=== PATIENT | female | born 1995 | race African-American/Black ===

== ENCOUNTER 2016-09-13 23:15 | Emergency (ER) | payer OTHER ==
--- NOTE | ~2016-09-13 | CT4 ---
[facility] A Service of [facility] RADIOLOGY TEXT RESULTS PATIENT: MADI ROMERO LOCATION: [facility] : [birth year] UNIT #: [id number] AGE: [address]: Tania Jones MD SEX: F ORDER DR: [id number] [facility] [address] [place], [place] [address] [id number] E MR#: [id number] #: [id number] NAME: MADI ROMERO : 1995 SEX: F STUDY DATE/TIME: 09/13/2016 22:58 UNIT: [facility] ROOM: STUDY DESCRIPTION: CT Abd and Pelv Wo Cont Attending Physician: Tania Jones M.D. Ordering Physician: Tania Jones M.D. Primary Care Physician: No Primary Care Physician MEDICAL IMAGING REPORT This report is preliminary unless electronic signature is present EXAM CT abdomen and pelvis 09/13/2016 at 23:51. INDICATIONS Nausea for 1 day. Dysuria for 1 month. Upper abdominal pain as well. TECHNIQUE Axial images were obtained through the abdomen and pelvis without contrast. Multiplanar reformats were obtained. This CT exam was performed with one or more of the following radiation dose reduction techniques: automatic exposure control, adjustment of mA and/or kV according to patient size, and iterative reconstruction. COMPARISON Comparison is made with 01/27/2015. FINDINGS Abdomen: Lung bases are clear. The gallbladder is normal. No renal or ureteral stones are seen and there is no hydronephrosis. The unenhanced solid organs are normal. The unopacified GI tract is normal. There is no free fluid. Pelvis: There are no lower ureteral stones. The bladder is normal. The appendix is normal. The remainder of the unopacified GI tract is normal as well. Solid pelvic organs are normal. IMPRESSION 1. Normal noncontrast CT abdomen pelvis. 2. No renal or ureteral stones. No hydronephrosis. 3. Normal unopacified GI tract, including the appendix. Dictated by... [facility] A Service of [facility] RADIOLOGY TEXT RESULTS PATIENT: MADI ROMERO LOCATION: [facility] : [birth year] UNIT #: [id number] AGE: [address]: Tania Jones MD SEX: F ORDER DR: David Arango Jr., M.D. THIS IS AN ELECTRONICALLY VERIFIED REPORT David Arango Jr., M.D. at 09/14/2016 12:38 PM ELVI/kami TD: 09/14/2016 09:27 JOB #: [id number] MEDICAL IMAGING REPORT COPY
[2016-09-13 23:07] LABS: URINE SOURCE CLEAN CATCH
[2016-09-13 23:11] LABS: URINE APPEARANCE CLEAR; URINE BILIRUBIN NEG (NEG); URINE BLOOD NEG (NEG); URINE COLOR YELLOW; URINE GLUCOSE NEG (NEG); URINE KETONE NEG (NEG); URINE LEUKOCYTE ESTERASE NEG (NEG); URINE NITRATE NEG (NEG); URINE PH 7.5 (5-8); URINE PROTEIN NEG (NEG); URINE SPECIFIC GRAVITY 1.021 (1.003-1.035); URINE UROBILINOGEN 0.2 MG/DL (NEG)
[2016-09-13 23:15] LABS: BASOPHIL% 0.3 % (0-2.5); EOSINOPHIL# 0.1 X10e3 (0-0.7); HEMATOCRIT 40.4 % (35.0-45.0); HEMOGLOBIN 13.3 gm/dL (12.0-16.0); LYMPHOCYTE# 2.7 X10e3 (1.0-3.5); LYMPHOCYTE% 45.2 % (17.0-45.0); MEAN CELL VOLUME 90.1 FL (83-96); MEAN CORPUSCULAR HEMOGLOBIN 29.8 PG (28-34); MEAN PLATELET VOLUME 9.2 FL (6.5-11.5); MONOCYTE# 0.7 X10e3 (0-1.0); MONOCYTE% 11.6 % (3.0-12.0); NEUTROPHIL# 2.5 X10e3 (1.5-7.1); NEUTROPHIL% 41.9 % (40-75); PLATELET COUNT 190 X10e3 (140-420); RED BLOOD COUNT 4.48 X10e (3.90-5.30)
[2016-09-13 23:16] LABS: DIFF IND NO
[2016-09-13 23:33] LABS: CULTURE INDICATED? NO
[2016-09-13 23:46] LABS: ALBUMIN SERUM 4.1 g/dL (3.5-5.0); ALKALINE PHOSPHATASE 77 U/L (32-92); ALT (SGPT) 14 U/L (10-40); AST (SGOT) 19 U/L (10-42); BILIRUBIN, DIRECT 0.1 mg/dL (0.0-0.2); BILIRUBIN,INDIRECT 0.4 mg/dL (0.0-0.9); BILIRUBIN,TOTAL 0.5 mg/dL (0.2-2.0); BLOOD UREA NITROGEN 12 mg/dL (9-23); BUN/CREATININE RATIO 17.14; CALCIUM SERUM 9.2 mg/dL (8.4-10.2); CARBON DIOXIDE 25 mmol/L (22-31); CHLORIDE 103 mmol/L (100-111); CREATININE SERUM 0.7 mg/dL (0.6-1.4); GLOM FILT RATE Estimated ABOVE60 mL/min (>60); GLUCOSE FASTING 76 mg/dL (70-110); POTASSIUM 3.7 mmol/L (3.5-5.1); SODIUM 135 mmol/L (135-145)
[2016-09-17 08:45] LABS: CHLAMYDIA TRACH Not Detected (Not Detected); N GONOR Not Detected (Not Detected)
== END 2016-09-14 01:30 | disposition home or self-care (01) ==
LOC: CED 23:15
PROVIDERS: Emergency Medicine
DX: R10.11 Right upper quadrant pain (principal); R11.0 Nausea; F17.210 Nicotine dependence, cigarettes, uncomplicated
CPT/HCPCS: 36415; 74176; 80048; 80076; 81003; 84703; 85025; 87491; 87591; 87808; 87905; 96374; 99284; J1885; J2405